=== PATIENT | male | born 2005 | race Caucasian/White ===

== ENCOUNTER 2024-05-08 08:59 | Emergency (ER) | payer SELFPAY ==
[~2024-05-08] VITALS: Ht 162.6 cm; Wt 61.0 kg
[2024-05-08 09:07] VITALS: O2SAT 100
[2024-05-08] MEDS: IBUPROFEN 600MG TABLET PO ONE (10:13)
[2024-05-08] MEDS: ACETAMINOPHEN 325MG TABLET PO ONE (10:14)
[2024-05-08] MEDS ORDERED: IBUP-1523 MT (11:53)
[2024-05-08] MEDS ORDERED: TOPUD MT (11:53)
[2024-05-08 12:05] VITALS: BP 114/73; PULSE 65; RESP 16; TEMP 37.1; O2SAT 100
== END 2024-05-08 12:06 | disposition home or self-care (01) ==
LOC: ER 09:08
DX: I21.9 Acute myocardial infarction, unspecified (principal)
CPT/HCPCS: 72100; 99283